=== PATIENT | female | born 1990 | race Caucasian/White ===

== ENCOUNTER 2016-08-16 05:09 | Emergency (ER) | payer OTHER ==
[~2016-08-16] VITALS: Ht 162.6 cm; Wt 63.7 kg
[~2016-08-16 05:09] MED LIST: ENDOCET 5-3251 EACH PO; IBUPROFEN800 MG PO; KEFLEX500 MG PO; Motrin PO; PREFERA-OB P1 TABLET PO; PRENATAL TABLE1 EACH PO; Percocet 5/325,Endoc PO; TAMIFLU75 MG PO
[2016-08-16] MEDS ORDERED: LEXAPRO20 MG PO (05:25)
[2016-08-16 05:48] LABS: HEMATOCRIT 28.7 % (36.0-46.0); MCH 19.8 PG (29.0-34.0); MCHC 30.7 G/DL (30.0-36.0); MCV 64.5 FL (83-99); MEAN PLAT.VOLUME 11.1 uM^3 (9.5-12.4); PLATELET COUNT 403 K/uL (156-360); RBC DIS.WIDTH-SD 39.2 % (39-53); RED BLOOD COUNT 4.45 M/uL (3.80-5.20); WHITE BLOOD COUNT 8.4 K/uL (4.1-10.2)
[2016-08-16 05:50] LABS: CHLORIDE 111 mEq/L (99-109); POTASSIUM 2.9 mEq/L (3.7-5.4); SODIUM 137 mEq/L (136-147)
[2016-08-16 05:52] LABS: GLUCOSE 138 mg/dL (70-99)
[2016-08-16 05:53] LABS: ANION GAP 14 MEQ/L (2-14)
[2016-08-16 05:55] LABS: GFR ESTIMATE (CALCULATED) > 59 mL/min/
[2016-08-16 05:56] LABS: UREA NITROGEN (BUN) 11 mg/dL (9-23)
[2016-08-16 06:04] LABS: QUANTITATIVE HCG < 4.0 MIU/ML
[2016-08-16] MEDS ORDERED: NORCO 5/3251 TABLET PO (06:36)
[2016-08-16] MEDS ORDERED: ZOFRAN8 MG PO (06:36)
[2016-08-16 07:03] LABS: ADD MIUA? YES; BILIRUBIN NEGATIVE; BLOOD MODERATE; GLUCOSE (STRIP) NEGATIVE; KETONES NEGATIVE; LEUKOCYTES NEGATIVE; NITRITE NEGATIVE; PH, URINE 6.5 (5-8); PROTEIN (STRIP) NEGATIVE; UROBILINOGEN 0.2 MG/DL (0.2-1.0)
[2016-08-16 07:14] LABS: COLOR LT YELLOW ((YELLOW))
[2016-08-16 07:24] LABS: BACTERIA NONE SEEN; CASTS NONE SEEN /LPF; CRYSTALS NONE SEEN; EPITHELIAL CELLS RARE; MUCUS NONE SEEN; PATHOLOGICAL CAST NONE SEEN; RED BLOOD CELLS 20-30 /HPF (0-5); SMALL ROUND CELL NONE SEEN; UCUL ADDED? NO; WHITE BLOOD CELLS 0-5 /HPF (0-5); YEAST-LIKE CELL NONE SEEN
[2016-08-16 08:11] LABS: SALICYLATE < 3.0 MG/DL (15-30); SERUM ETHYL ALCOHOL < 10 mg/dL
[2016-08-16 08:29] LABS: CHLORIDE 114 mEq/L (99-109); POTASSIUM 4.3 mEq/L (3.7-5.4); SODIUM 139 mEq/L (136-147)
[2016-08-16 08:30] LABS: GLUCOSE 101 mg/dL (70-99)
[2016-08-16 08:32] LABS: ANION GAP 8 MEQ/L (2-14)
[2016-08-16 08:34] LABS: GFR ESTIMATE (CALCULATED) > 59 mL/min/
[2016-08-16 08:35] LABS: UREA NITROGEN (BUN) 8 mg/dL (9-23)
[2016-08-16 10:02] VITALS: BP 110/72
== END 2016-08-16 10:18 | disposition home or self-care (01) ==
LOC: EME 05:09
PROVIDERS: Emergency Medicine
DX: E86.0 Dehydration (principal); D53.9 Nutritional anemia, unspecified; E87.2 Acidosis; N20.1 Calculus of ureter
CPT/HCPCS: 74176; 80048; 80048 91; 81003; 83605; 84702; 85027; 99281; 99285; G0480; J1885; J2270; J2405; J3480; J7030

== ENCOUNTER → 2016-10-04 | Outpatient (CLI) | payer OTHER ==
[~2016-10-04] VITALS: Ht 160 cm; Wt 63.5 kg
[~2016-10-04] MED LIST changes: +LEXAPRO20 MG PO; +NORCO 5/3251 TABLET PO; +NUVARING VAGIN1 EACH VG; +ZOFRAN8 MG PO
== END | disposition home or self-care (01) ==
LOC: AMB 08:00
PROC: 0TF4XZZ Fragmentation in Left Kidney Pelvis, External Approach (ICD-10-PCS; principal; 2016-10-04)
DX: N20.0 Calculus of kidney (principal)
CPT/HCPCS: 74010; J2250; J3010